=== PATIENT | male | born 1965 | race Hispanic/Latino ===

== ENCOUNTER 2016-10-13 03:45 | Emergency (ER) | payer MEDICAID, OTHER ==
[2016-10-13 04:08] VITALS: BP 137/88; PULSE 76; RESP 18; TEMP 98; O2SAT 98
--- NOTE | 2016-10-13 04:39 | ED PDOC ---
HPI: Psych/Substance Abuse Time Seen by Provider: 10/13/16 03:50 Chief Complaint (Nursing): Psychiatric Evaluation Chief Complaint (Provider): crisis eval, alcohol intoxication History Per: Patient History/Exam Limitations: no limitations Onset/Duration Of Symptoms: Hrs Current Symptoms Are (Timing): Still Present Additional Complaint(s): 51yo male with PMHx including alcoholism presents to the ED for crisis eval and alcohol intoxication. Patient admits to alcohol use today and reports feeling depressed with suicidal ideation but denies specific plan. Denies any other medical or psychiatric complaints. Past Medical History Reviewed: Historical Data, Nursing Documentation, Vital Signs Vital Signs: Last Vital Signs Temp 98 F 10/13/16 03:58 Pulse 76 10/13/16 03:58 Resp 18 10/13/16 03:58 BP 137/88 10/13/16 03:58 Pulse Ox 98 10/13/16 03:58 - Medical History PMH: HTN, Seizures (Alcohol Withdrawal) Denies: Diabetes, Hepatitis, HIV, Chronic Kidney Disease, Sexually Transmitted Disease - Surgical History Surgical History: No Surg Hx - Family History Family History: States: No Known Family Hx - Living Arrangements Living Arrangements: Other (homeless) - Social History Current smoker - smoking cessation education provided: Yes Alcohol: Other (hx of alcoholism) Drugs: Denies - Immunization History Hx Tetanus Toxoid Vaccination: Yes Hx Influenza Vaccination: Yes Hx Pneumococcal Vaccination: Yes - Home Medications Home Medications: Ambulatory Orders Medication Instructions Recorded Clotrimazole 1% Cream [Lotrimin 1%] 30 applic TOP BID #1 tube 09/21/16 Hydrocortisone 1% Cream [Cortizone 1 appl TP BID #1 tube 09/21/16 1% Cream] - Allergies Allergies/Adverse Reactions: Allergies Allergy/AdvReac Type Severity Reaction Status Date / Time mushroom AdvReac SWELLING Verified 09/21/16 12:02 Review of Systems ROS Statement: Except As Marked, All Systems Reviewed And Found Negative Psych: Positive for: Depression, Suicidal ideation Physical Exam - Reviewed Nursing Documentation Reviewed: Yes Vital Signs Reviewed: Yes - Physical Exam Appears: Positive for: Well, No Acute Distress Head Exam: Positive for: ATRAUMATIC, NORMAL INSPECTION, NORMOCEPHALIC Skin: Positive for: Normal Color, Warm, Dry Eye Exam: Positive for: Normal appearance, EOMI, PERRL ENT: Positive for: Normal ENT Inspection Neck: Positive for: Normal, Painless ROM, Supple Cardiovascular/Chest: Positive for: Regular Rate, Rhythm. Negative for: Murmur , Tachycardia Respiratory: Positive for: Normal Breath Sounds. Negative for: Wheezing, Respiratory Distress Gastrointestinal/Abdominal: Positive for: Normal Exam, Soft. Negative for: Tenderness Back: Positive for: Normal Inspection Extremity: Positive for: Normal ROM. Negative for: Deformity, Swelling Neurologic/Psych: Positive for: Alert, Oriented - Laboratory Results Result Diagrams: 10/13/16 04:30 - ECG O2 Sat by Pulse Oximetry: 98 Pulse Ox Interpretation: Normal (RA) Medical Decision Making Medical Decision Makin: Impression: 51yo male w/ depression and suicidal ideation in setting of alcohol use Plan: Labs crisis eval reassess 0540: Patient was evaluated and cleared by crisis. Patient stable for d/c. Dx: alcohol dependence stable Scribe Attestation: Documented by Levon Perez acting as a scribe for Bernardo Torres MD. Provider Scribe Attestation: All medical record entries made by the Scribe were at my direction and personally dictated by me. I have reviewed the chart and agree that the record accurately reflects my personal performance of the history, physical exam, medical decision making, and the department course for this patient. I have also personally directed, reviewed, and agree with the discharge instructions and disposition. Disposition - Clinical Impression Clinical Impression: Alcohol dependence - Patient ED Disposition Is Patient to be Admitted: No - Disposition Disposition: Routine/Home Disposition Time: 05:40 Condition: STABLE Instructions: Alcohol Dependence (ED)
[2016-10-13 04:52] LABS: BASO # 0.2 K/uL (0.0-0.2); BASO % 2.2 % (0.0-2.0); EOS # 0.6 K/uL (0.0-0.7); EOS % 6.4 % (0.0-4.0); HEMATOCRIT 38.8 % (35.0-51.0); LYMPH # 3.7 K/uL (1.0-4.3); LYMPH % 38.3 % (20.0-40.0); MEAN CELL VOLUME 98.4 fl (80.0-94.0); MEAN CORPUSCULAR HEMOGLOBIN 32.5 pg (27.0-31.0); MEAN PLATELET VOLUME 6.6 fl (7.2-11.7); MONO # 0.6 K/uL (0.0-0.8); MONO % 6.1 % (0.0-10.0); NEUT # 4.5 K/uL (1.8-7.0); NRBC % 0.1 % (0.0-0.0); RED CELL DISTRIBUTION WIDTH 14.2 % (11.5-14.5); WHITE BLOOD COUNT 9.6 K/uL (4.8-10.8)
[2016-10-13 05:10] LABS: RBC URINE 5 /hpf (0-3); URINE BILIRUBIN NEGATIVE (NEGATIVE); URINE BLOOD NEGATIVE (NEGATIVE); URINE COLOR STRAW (YELLOW); URINE GLUCOSE (UA) NEG (Normal); URINE KETONE NEGATIVE (NEGATIVE); URINE LEUKOCYTE ESTERASE NEG Leu/uL (Negative); URINE PROTEIN NEGATIVE (NEGATIVE); URINE UROBILINOGEN 0.2-1.0 mg/dL (0.2-1.0)
== END 2016-10-13 06:40 | disposition home or self-care (01) ==
LOC: H.ER 03:45
DX: F10.129 Alcohol abuse with intoxication, unspecified (principal)

== ENCOUNTER 2016-11-12 15:32 | Emergency (ER) | payer OTHER ==
--- NOTE | 2016-11-12 15:59 | ED PDOC ---
HPI: General Adult Time Seen by Provider: 11/12/16 15:40 Chief Complaint (Nursing): Medical Clearance Chief Complaint (Provider): Alcohol Withdrawal History Per: Patient History/Exam Limitations: no limitations Onset/Duration Of Symptoms: Days (1x) Current Symptoms Are (Timing): Still Present Severity: Moderate Additional Complaint(s): 51 year old male with a pertinent medical history of alcoholism, hypertension ( no medications), and seizures, currently under police custody is brought into the ED by [facility] for a medical and psychiatric evaluation. Patient reports feeling shaky and nauseous due to alcohol withdrawal. He reports that the last time he drank alcohol was last night and he has had seizures in the past from alcohol withdrawal (resolved when given Librium). He reports having associated symptoms of shortness of breath, anxiety , and depression. He denies having vomiting, chest pain, hallucinations, suicidal ideation, and homicidal ideation. PMD: Patient does not have a PMD. Past Medical History Reviewed: Historical Data, Nursing Documentation, Vital Signs Vital Signs: Last Vital Signs Temp 99.1 F 11/12/16 20:35 Pulse 91 H 11/12/16 20:35 Resp 16 11/12/16 20:35 BP 161/111 H 11/12/16 20:35 Pulse Ox 95 11/12/16 20:35 - Medical History PMH: HTN (not on medications), Seizures (Alcohol Withdrawal) Denies: Diabetes, Hepatitis, HIV, Chronic Kidney Disease, Sexually Transmitted Disease - Surgical History Surgical History: No Surg Hx - Family History Family History: States: Hypertension Other Family History: mother and father had cancer - Living Arrangements Living Arrangements: Other (currently in [place] [employer] custody) - Social History Current smoker - smoking cessation education provided: No Alcohol: > 2 Drinks/Day Drugs: Denies - Immunization History Hx Tetanus Toxoid Vaccination: Yes Hx Influenza Vaccination: Yes Hx Pneumococcal Vaccination: Yes - Home Medications Home Medications: Ambulatory Orders Medication Instructions Recorded Clotrimazole 1% Cream [Lotrimin 1%] 30 applic TOP BID #1 tube 09/21/16 Hydrocortisone 1% Cream [Cortizone 1 appl TP BID #1 tube 09/21/16 1% Cream] - Allergies Allergies/Adverse Reactions: Allergies Allergy/AdvReac Type Severity Reaction Status Date / Time mushroom AdvReac SWELLING Verified 09/21/16 12:02 Review of Systems ROS Statement: Except As Marked, All Systems Reviewed And Found Negative Cardiovascular: Negative for: Chest Pain Respiratory: Positive for: Shortness of Breath Gastrointestinal: Positive for: Nausea. Negative for: Vomiting Psych: Positive for: Anxiety, Depression, Withdrawal (alcohol withdrawal). Negative for: Suicidal ideation (denies homicidal ideations), Other ( hallucinations) Physical Exam - Reviewed Nursing Documentation Reviewed: Yes Vital Signs Reviewed: Yes - Physical Exam Appears: Positive for: Well, Non-toxic (malodorous), No Acute Distress Skin: Positive for: Normal Color, Warm, Dry (diffusely scaly especially on bilateral lower extremities) Eye Exam: Positive for: Conjunctival injection ENT: Positive for: Other (tacky mucous membranes) Cardiovascular/Chest: Positive for: Tachycardia (regular rhythm) Respiratory: Positive for: Normal Breath Sounds. Negative for: Respiratory Distress Neurologic/Psych: Positive for: Alert, Oriented (3x) - Laboratory Results Result Diagrams: 11/12/16 16:16 11/12/16 16:16 - ECG ECG: Positive for: Interpreted By Me, Viewed By Me ECG Rhythm: Positive for: Normal QRS, Normal ST Segment, Sinus Rhythm (normal sinus rhythm at 77 beats per minute) O2 Sat by Pulse Oximetry: 96 (RA) Pulse Ox Interpretation: Normal Medical Decision Making Medical Decision Makin:40 Initial impression: 51 year old male with alcohol withdrawal and mild depression. Initial plan: * EKG * bloodwork * labs * librium 100mg PO * vitamin B1 tab 100mg PO * zofran 8mg IV 1900 Labs demosntrate elevated BAL, otherwise no emergently significant abnormalities. Cleared by for dc Scribe Attestation: Documented by Lelia Alvarez, acting as a scribe for Marianne Morgan MD. Provider Scribe Attestation: All medical record entries made by the Scribe were at my direction and personally dictated by me. I have reviewed the chart and agree that the record accurately reflects my personal performance of the history, physical exam, medical decision making, and the department course for this patient. I have also personally directed, reviewed, and agree with the discharge instructions and disposition. Disposition - Clinical Impression Clinical Impression: Alcohol dependence Counseled Patient/Family Regarding: Studies Performed - Disposition Referrals: Alcoholics Anonymous [Outside] [facility] [Outside] Disposition: Discharged/Transfer to Law Enforcement Disposition Time: 19:00 Condition: GOOD Additional Instructions: PATIENT IS MEDICALLY AND PSYCHIATRICALLY STABLE FOR INCARCERATION Instructions: Abuse of Alcohol (ED)
[2016-11-12] MEDS ORDERED: Thiamine 100 mg/ml Inj IM STA (16:31)
[2016-11-12 16:38] LABS: ALB/GLOB RATIO 1.1 (1.0-2.1); ALBUMIN 4.4 g/dL (3.5-5.0); ALT/SGPT 85 U/L (21-72); AST/SGOT 169 U/L (17-59); BLOOD UREA NITROGEN 4 mg/dl (9-20); CALCIUM 9.1 mg/dL (8.4-10.2); GFR AFRICAN-AMERICAN > 60; GFR NON-AFRICAN AMERICAN > 60; MAGNESIUM 1.1 MG/DL (1.6-2.3)
[2016-11-12 16:42] LABS: BASO % 0.9 % (0.0-2.0); EOS % 0.7 % (0.0-4.0); HEMOGLOBIN 12.8 g/dL (12.0-18.0); LYMPH # 1.1 K/uL (1.0-4.3); LYMPH % 31.7 % (20.0-40.0); MEAN CELL VOLUME 95.6 fl (80.0-94.0); MEAN CORPUSCULAR HEMOGLOBIN 32.6 pg (27.0-31.0); MEAN CORPUSCULAR HGB CONC 34.1 g/dL (33.0-37.0); MEAN PLATELET VOLUME 7.7 fl (7.2-11.7); MONO # 0.5 K/uL (0.0-0.8); MONO % 13.2 % (0.0-10.0); NEUT # 1.8 K/uL (1.8-7.0); NEUT % 53.5 % (50.0-75.0); NRBC % 0.3 % (0.0-0.0); RBC 3.92 Mil/uL (4.40-5.90); RED CELL DISTRIBUTION WIDTH 14.4 % (11.5-14.5); WHITE BLOOD COUNT 3.4 K/uL (4.8-10.8)
[2016-11-12 20:35] VITALS: BP 161/111; PULSE 91; RESP 16; TEMP 99.1
--- NOTE | 2016-11-13 08:22 | CARD ---
APPROVED REPORT EKG Measurement Heart [id number] <Conclusion> Normal sinus rhythm Normal ECG
[2016-11-14 18:11] VITALS: O2SAT 96
== END 2016-11-12 21:47 ==
LOC: H.ER 15:32
DX: F10.239 Alcohol dependence with withdrawal, unspecified (principal); F32.9 Major depressive disorder, single episode, unspecified; I10 Essential (primary) hypertension; R56.9 Unspecified convulsions; R00.0 Tachycardia, unspecified

== ENCOUNTER 2017-05-31 06:30 | Emergency (ER) | payer MEDICAID, OTHER ==
[2017-05-31 06:55] VITALS: BP 166/71; PULSE 100; RESP 17; TEMP 98; O2SAT 97
[2017-05-31] MEDS ORDERED: Permethrin 5% CREAM TOP ONE (07:05)
[2017-05-31] MEDS ORDERED: Sodium Chloride 0.9% 1,000 ML IV STA (07:33)
[2017-05-31 08:01] LABS: BASO # 0.1 K/uL (0.0-0.2); HEMOGLOBIN 9.6 g/dL (12.0-18.0); LYMPH # 1.2 K/uL (1.0-4.3); LYMPH % 14.7 % (20.0-40.0); MEAN CELL VOLUME 90.2 fl (80.0-94.0); MEAN CORPUSCULAR HEMOGLOBIN 30.2 pg (27.0-31.0); MEAN CORPUSCULAR HGB CONC 33.5 g/dL (33.0-37.0); MEAN PLATELET VOLUME 7.1 fl (7.2-11.7); MONO # 1.1 K/uL (0.0-0.8); MONO % 13.9 % (0.0-10.0); NEUT # 4.6 K/uL (1.8-7.0); NEUT % 58.4 % (50.0-75.0); RBC 3.18 Mil/uL (4.40-5.90); RED CELL DISTRIBUTION WIDTH 15.9 % (11.5-14.5); WHITE BLOOD COUNT 7.9 K/uL (4.8-10.8)
--- NOTE | 2017-05-31 08:04 | ED PDOC ---
Syncope/Near Syncope/Dizziness Time Seen by Provider: 05/31/17 06:59 Chief Complaint (Nursing): Dizziness/Lightheaded Chief Complaint (Provider): Dizziness/Lightheaded History Per: Patient History/Exam Limitations: no limitations Onset/Duration Of Symptoms: Mins (prior to arrival) Current Symptoms Are (Timing): Still Present Additional Complaint(s): 52 year old male with medical history of hypertension, who presents to the emergency department with a complaint of dizziness associated with nausea while walking prior to arrival. Patient also reported having tick bites all over body from "bugs at the alf". Denied any chest pain, shortness of breath, vomiting or diarrhea. PMD: none provided Past Medical History Reviewed: Historical Data, Nursing Documentation, Vital Signs Vital Signs: Last Vital Signs Temp 98.0 F 05/31/17 06:41 Pulse 100 H 05/31/17 06:41 Resp 17 05/31/17 06:41 BP 166/71 H 05/31/17 06:41 Pulse Ox 97 05/31/17 06:41 - Medical History PMH: HTN (not on medications), Seizures (Alcohol Withdrawal) Denies: HIV, Chronic Kidney Disease, Sexually Transmitted Disease - Surgical History Surgical History: No Surg Hx - Family History Family History: States: Hypertension - Social History Current smoker - smoking cessation education provided: No Alcohol: Occasional Drugs: Denies - Immunization History Hx Tetanus Toxoid Vaccination: Yes Hx Influenza Vaccination: Yes Hx Pneumococcal Vaccination: Yes - Home Medications Home Medications: Ambulatory Orders Medication Instructions Recorded Permethrin [Elimite] 60 gm TP ONCE #1 cream..g. 05/22/17 predniSONE [Prednisone] 40 mg PO DAILY #4 tab 05/22/17 - Allergies Allergies/Adverse Reactions: Allergies Allergy/AdvReac Type Severity Reaction Status Date / Time mushroom AdvReac SWELLING Verified 12/15/16 23:38 Review of Systems ROS Statement: Except As Marked, All Systems Reviewed And Found Negative Cardiovascular: Negative for: Chest Pain Respiratory: Negative for: Shortness of Breath Gastrointestinal: Positive for: Nausea. Negative for: Vomiting, Diarrhea Skin: Positive for: Other (diffuse bug bites) Neurological: Positive for: Dizziness Physical Exam - Reviewed Nursing Documentation Reviewed: Yes Vital Signs Reviewed: Yes - Physical Exam Appears: Positive for: No Acute Distress Head Exam: Positive for: ATRAUMATIC, NORMAL INSPECTION, NORMOCEPHALIC Skin: Positive for: Dry (with diffuse excoriation). Negative for: Normal Color , Rash (or local redness/induration) Cardiovascular/Chest: Positive for: Regular Rate, Rhythm, Chest Non Tender Respiratory: Positive for: Normal Breath Sounds. Negative for: Decreased Breath Sounds, Wheezing, Respiratory Distress Gastrointestinal/Abdominal: Positive for: Normal Exam, Soft. Negative for: Tenderness Extremity: Positive for: Normal ROM (upper/lower) Neurologic/Psych: Positive for: Alert (x2), Other - Laboratory Results Result Diagrams: 05/31/17 07:57 05/31/17 07:57 - ECG O2 Sat by Pulse Oximetry: 97 (RA) Pulse Ox Interpretation: Normal Medical Decision Making Medical Decision Making: Initial Impression: Near syncope Initial Plan: * Alcohol serum * CMP * CBC * NS 1,000ml IV per 1,000mls/hr * Pepcid 20mg IVP * Tylenol 650mg PO * Zofran 4mg IVP * Permethrin 5% cream Scribe Attestation: Documented by Rachna Ramirez, acting as a scribe for Sherie Keller MD. Provider Scribe Attestation: All medical record entries made by the Scribe were at my direction and personally dictated by me. I have reviewed the chart and agree that the record accurately reflects my personal performance of the history, physical exam, medical decision making, and the department course for this patient. I have also personally directed, reviewed, and agree with the discharge instructions and disposition. patient made aware of anemia - advised possibly due to GI tract blood loss. Rectal exam needed for stool specimen. Patient refused. Disposition - Clinical Impression Clinical Impression: Anemia, Alcohol abuse, Pruritic dermatitis - Patient ED Disposition Is Patient to be Admitted: No Doctor Will See Patient In The: Office - Disposition [facility]errals[facility] [[facility]] [facility] [Outside] Disposition: Routine/Home Disposition Time: 10:20 Condition: STABLE Forms: [employer] [facility] (Mexican) - POA Present On Arrival: None
[2017-05-31 08:34] LABS: CALCIUM 8.4 mg/dL (8.4-10.2); GFR AFRICAN-AMERICAN > 60; GFR NON-AFRICAN AMERICAN > 60
[2017-05-31 08:43] LABS: ALB/GLOB RATIO 0.9 (1.0-2.1); ALBUMIN 3.9 g/dL (3.5-5.0); ALT/SGPT 39 U/L (21-72); AST/SGOT 95 U/L (17-59); BLOOD UREA NITROGEN 8 mg/dl (9-20)
[2017-05-31] MEDS ORDERED: Naproxen 500 MG TAB PO ONE ×2 (08:43→08:44)
== END 2017-05-31 12:20 | disposition home or self-care (01) ==
LOC: H.ER 06:30
DX: F10.10 Alcohol abuse, uncomplicated (principal); D64.9 Anemia, unspecified; L30.8 Other specified dermatitis; I10 Essential (primary) hypertension
CPT/HCPCS: 80053; 80320; 85025; 96374; 96375; 99285; J2405; J7040

== ENCOUNTER 2017-06-02 05:28 | Emergency (ER) | payer OTHER ==
[2017-06-02 05:39] VITALS: BMI 27.3
[2017-06-02] MEDS ORDERED: Permethrin 5% CREAM TOP ONE (05:40)
[2017-06-02 05:42] VITALS: BP 145/75; PULSE 91; RESP 18; TEMP 98.7; O2SAT 100
--- NOTE | 2017-06-02 07:15 | ED PDOC ---
HPI: Skin/Bite Injury Time Seen by Provider: 06/02/17 05:38 Chief Complaint (Nursing): Abnormal Skin Integrity Chief Complaint (Provider): Skin History Per: Other (Police) Current Symptoms Are (Timing): Still Present Additional Complaint(s): Surjit Park is a 52 year old white male with a history of alcoholism and hypertension that was brought to the ED by [employer] and presents to the ED with a chief complaint of itchiness to multiple extremities. He denies any fever, nausea, vomiting, or abdominal pain. Past Medical History Reviewed: Historical Data, Nursing Documentation, Vital Signs Vital Signs: Last Vital Signs Temp 98.7 F 06/02/17 05:32 Pulse 91 H 06/02/17 05:32 Resp 18 06/02/17 05:32 BP 145/75 06/02/17 05:32 Pulse Ox 100 06/02/17 05:32 - Medical History PMH: HTN (not on medications), Seizures (Alcohol Withdrawal) Denies: HIV, Chronic Kidney Disease, Sexually Transmitted Disease - Family History Family History: States: Unknown Family Hx, Hypertension - Social History Current smoker - smoking cessation education provided: Yes Alcohol: > 2 Drinks/Day (hx of alcoholism) - Immunization History Hx Tetanus Toxoid Vaccination: Yes Hx Influenza Vaccination: Yes Hx Pneumococcal Vaccination: Yes - Home Medications Home Medications: Ambulatory Orders Medication Instructions Recorded Permethrin [Elimite] 60 gm TP ONCE #1 cream..g. 05/22/17 predniSONE [Prednisone] 40 mg PO DAILY #4 tab 05/22/17 - Allergies Allergies/Adverse Reactions: Allergies Allergy/AdvReac Type Severity Reaction Status Date / Time mushroom AdvReac SWELLING Verified 12/15/16 23:38 Review of Systems Constitutional: Negative for: Fever Gastrointestinal: Negative for: Nausea, Vomiting, Abdominal Pain Physical Exam - Physical Exam Appears: Positive for: Non-toxic, No Acute Distress Head Exam: Positive for: ATRAUMATIC, NORMOCEPHALIC Skin: Positive for: Rash (pruritis to extremities). Negative for: Normal Color Eye Exam: Positive for: Normal appearance, EOMI, PERRL Cardiovascular/Chest: Positive for: Regular Rate, Rhythm. Negative for: Murmur Respiratory: Positive for: Normal Breath Sounds. Negative for: Wheezing Gastrointestinal/Abdominal: Positive for: Normal Exam, Soft. Negative for: Tenderness Back: Positive for: Normal Inspection. Negative for: L CVA Tenderness, R CVA Tenderness Extremity: Positive for: Normal ROM, Other (Diffuse scabies to the extremities) Neurologic/Psych: Positive for: Alert, Oriented. Negative for: Motor/Sensory Deficits - ECG O2 Sat by Pulse Oximetry: 100 (RA) Pulse Ox Interpretation: Normal Medical Decision Making Medical Decision Making: Impression: Scabies Plan: * Patient escorted to decon room and showered. Given clean clothes afterwards. Permethrin 5% applied to affected areas. Patient is medically stable for incarceration. Scribe Attestation: Documented by Manda Drake, acting as a scribe for Bernardo Torres MD. Provider Scribe Attestation: All medical record entries made by the Scribe were at my direction and personally dictated by me. I have reviewed the chart and agree that the record accurately reflects my personal performance of the history, physical exam, medical decision making, and the department course for this patient. I have also personally directed, reviewed, and agree with the discharge instructions and disposition. Disposition - Clinical Impression Clinical Impression: Scabies - Patient ED Disposition Is Patient to be Admitted: No - Disposition Disposition: Discharged/Transfer to Law Enforcement Disposition Time: 06:20 Condition: STABLE Additional Instructions: Patient is medically stable for incarceration Instructions: Scabies (ED) Forms: [employer] (Surinamese)
== END 2017-06-02 06:21 | disposition home or self-care (01) ==
LOC: H.ER 05:28
DX: B86 Scabies (principal); I10 Essential (primary) hypertension; F17.200 Nicotine dependence, unspecified, uncomplicated; Z02.89 Encounter for other administrative examinations

== ENCOUNTER 2017-06-30 23:34 | Emergency (ER) | payer MEDICAID, OTHER ==
[2017-06-30 23:34] VITALS: BMI 27.3
[2017-06-30 23:40] VITALS: BP 121/76; PULSE 70; RESP 18; TEMP 98.1; O2SAT 98
--- NOTE | 2017-07-01 00:31 | ED PDOC ---
HPI: General Adult Time Seen by Provider: 06/30/17 23:52 Chief Complaint (Nursing): Medical Clearance History Per: Patient Additional Complaint(s): Pt. brought in by police for medical and psychiatric clearance for incarceration. Pt. informed police that he was recent treated for bed bugs. Offers no complaints at this time. Denies rash, pruritus, fever, pain, SI/HI, hallucinations. Past Medical History Reviewed: Historical Data, Nursing Documentation, Vital Signs Vital Signs: Last Vital Signs Temp 98.1 F 06/30/17 23:36 Pulse 70 06/30/17 23:36 Resp 18 06/30/17 23:36 BP 121/76 06/30/17 23:36 Pulse Ox 98 07/01/17 00:31 - Medical History PMH: HTN (not on medications), Seizures (Alcohol Withdrawal) Denies: HIV, Chronic Kidney Disease, Sexually Transmitted Disease - Family History Family History: States: Hypertension - Immunization History Hx Tetanus Toxoid Vaccination: Yes Hx Influenza Vaccination: Yes Hx Pneumococcal Vaccination: Yes - Home Medications Home Medications: Ambulatory Orders Medication Instructions Recorded Permethrin [Elimite] 60 gm TP ONCE #1 cream..g. 05/22/17 chlordiazePOXIDE [Chlordiazepoxide 25 mg PO PRN 06/11/17 HCl] - Allergies Allergies/Adverse Reactions: Allergies Allergy/AdvReac Type Severity Reaction Status Date / Time mushroom AdvReac SWELLING Verified 06/30/17 23:36 Review of Systems ROS Statement: Except As Marked, All Systems Reviewed And Found Negative Physical Exam - Physical Exam Appears: Positive for: Well, Non-toxic, No Acute Distress Skin: Positive for: Normal Color, Warm. Negative for: Rash Neurologic/Psych: Positive for: Alert, Oriented. Negative for: Aphasia, Facial Droop - ECG O2 Sat by Pulse Oximetry: 98 Disposition - Clinical Impression Clinical Impression: Medical clearance for incarceration - Patient ED Disposition Is Patient to be Admitted: No - Disposition Referrals: Grupo Puckett MD [Primary Care Provider] - Disposition: Discharged/Transfer to Law Enforcement Disposition Time: 00:31 Condition: STABLE Additional Instructions: Patient is medically and psychiatrically cleared for incarceration. Forms: [employer] (Cameroonian) Print Language: UZBEK
== END 2017-07-01 01:15 ==
LOC: H.ER 23:34
DX: I10 Essential (primary) hypertension

== ENCOUNTER 2017-07-09 03:16 | Emergency (ER) | payer SELFPAY ==
[2017-07-09 03:16] VITALS: BMI 27.3
[2017-07-09 03:44] VITALS: RESP 18
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
[2017-07-09 06:18] VITALS: BP 157/91; PULSE 88; TEMP 98.3; O2SAT 98
--- NOTE | 2017-07-09 10:10 | RAD ---
HISTORY: cough, congestion COMPARISON: No prior. TECHNIQUE: Chest PA and lateral FINDINGS: LUNGS: Diminished inspiratory volume crowns of bilateral bronchovascular markings. No definite alveolitis appreciable bilaterally nevertheless. PLEURA: No significant pleural effusion identified. No pneumothorax apparent. CARDIOVASCULAR: Normal. OSSEOUS STRUCTURES: No significant abnormalities. VISUALIZED UPPER ABDOMEN: Normal. OTHER FINDINGS: None. IMPRESSION: Diminished inspiratory volume crowds the bronchovascular markings at the bases bilaterally. No definite acute infiltrate, pleural effusion or pneumothorax identified.
== END 2017-07-09 07:02 | disposition home or self-care (01) ==
LOC: H.ER 03:16
DX: J06.9 Acute upper respiratory infection, unspecified (principal); I10 Essential (primary) hypertension; Z59.0 Homelessness

== ENCOUNTER 2017-11-16 03:59 | Emergency (ER) | payer MEDICAID, OTHER ==
[2017-11-16 04:00] VITALS: BMI 27.3
[2017-11-16 04:16] VITALS: RESP 18
--- NOTE | 2017-11-16 05:32 | ED PDOC ---
HPI: Back Time Seen by Provider: 11/16/17 04:12 Chief Complaint (Nursing): Lower Extremity Problem/Injury History Per: Patient Additional Complaint(s): Pt. states approximately 5 hours he's had atraumatic L buttock pain upon awakening. Pt. states he did sleep on that side. Denies blunt trauma, numbness, tingling, radiation of pain, incontinence, abdominal pain, dysuria, hematuria. Past Medical History Reviewed: Historical Data, Nursing Documentation, Vital Signs Vital Signs: Last Vital Signs Temp 97.6 F 11/16/17 04:13 Pulse 102 H 11/16/17 04:13 Resp 18 11/16/17 04:13 BP 132/96 H 11/16/17 04:13 Pulse Ox 97 11/16/17 04:13 - Medical History PMH: HTN (not on medications), Seizures (Alcohol Withdrawal) Denies: HIV, Chronic Kidney Disease, Sexually Transmitted Disease - Family History Family History: States: Hypertension - Immunization History Hx Tetanus Toxoid Vaccination: Yes Hx Influenza Vaccination: Yes Hx Pneumococcal Vaccination: Yes - Home Medications Home Medications: Ambulatory Orders Medication Instructions Recorded Permethrin [Elimite] 60 gm TP ONCE #1 cream..g. 05/22/17 chlordiazePOXIDE [Chlordiazepoxide 25 mg PO PRN 06/11/17 HCl] Albuterol HFA [Ventolin HFA 90 1 puff IH Q4 PRN #1 inh 07/09/17 mcg/actuation (8 g)] Benzonatate [Tessalon Perle] 100 mg PO TID PRN #15 capsule 07/09/17 Fluticasone Nasal [Flonase] 1 actuation NS BID #1 bottle 07/09/17 Cyclobenzaprine [Cyclobenzaprine 10 mg PO Q8 PRN #10 tab 11/16/17 HCl] Naproxen [Naprosyn] 500 mg PO BID PRN #10 tab 11/16/17 - Allergies Allergies/Adverse Reactions: Allergies Allergy/AdvReac Type Severity Reaction Status Date / Time mushroom AdvReac SWELLING Verified 06/30/17 23:36 Review of Systems ROS Statement: Except As Marked, All Systems Reviewed And Found Negative Musculoskeletal: Positive for: Back Pain Physical Exam - Physical Exam Appears: Positive for: Well, Non-toxic, No Acute Distress (sleeping comfortably ; easily arousable to verbal stimuli) Head Exam: Positive for: ATRAUMATIC, NORMAL INSPECTION, NORMOCEPHALIC Skin: Positive for: Normal Color, Warm. Negative for: Rash Eye Exam: Positive for: Normal appearance Cardiovascular/Chest: Positive for: Regular Rate, Rhythm, Chest Non Tender Respiratory: Positive for: Normal Breath Sounds. Negative for: Respiratory Distress Pulses-Dorsalis Pedis (L): 2+ Pulses-Dorsalis Pedis (R): 2+ Gastrointestinal/Abdominal: Positive for: Normal Exam, Soft. Negative for: Tenderness Back: Positive for: Normal Inspection, Muscle Spasm (large muscle spasm in L buttock area without any skin changes, warmth, erythema, ecchymosis or break in skin integrity). Negative for: L CVA Tenderness, R CVA Tenderness, Vertebral Tenderness Extremity: Positive for: Normal ROM, Other (no pelvic/hip tenderness or deformity) Neurologic/Psych: Positive for: Alert, Oriented, Gait (steady, unassisted), Other (no slurred speech). Negative for: Aphasia, Facial Droop - ECG O2 Sat by Pulse Oximetry: 97 - Progress ED Course And Treament: L hip/pelvic x-rays, toradol 30mg IM, flexeril 10mg PO ordered. On re-evaluation, pt. reports pain relief. Gait is steady unassisted. Disposition - Clinical Impression Clinical Impression: Muscle spasm - Patient ED Disposition Is Patient to be Admitted: No - Disposition Referrals: [facility] [Outside] Disposition: Routine/Home Disposition Time: 06:36 Condition: IMPROVED Additional Instructions: CATHI PARSON, thank you for letting us take care of you today. Your provider was Bernardo Torres MD and you were treated for LT LEG PAIN. The emergency medical care you received today was directed at your acute symptoms. If you were prescribed any medication, please fill it and take as directed. It may take several days for your symptoms to resolve. Return to the Emergency Department if your symptoms worsen, do not improve, or if you have any other problems. Please contact your doctor or call one of the physicians/clinics you have been referred to that are listed on the Patient Visit Information form that is included in your discharge packet. Bring any paperwork you were given at discharge with you along with any medications you are taking to your follow up visit. Our treatment cannot replace ongoing medical care by a primary care provider outside of the emergency department. Thank you for allowing the [facility] team to be part of your care today. If you had an X-Ray or CT scan: A Radiologist will review the ED reading if any change in treatment is needed we will contact you. If you had a blood, urine, or wound culture: It will take several days for the results, if any change in treatment is needed we will contact you. If you had an STI test: It will take 48 hours for the results. Please call after 1 week if you have not heard back. Prescriptions: Cyclobenzaprine [Cyclobenzaprine HCl] 10 mg PO Q8 PRN #10 tab PRN Reason: Muscle Spasm Naproxen [Naprosyn] 500 mg PO BID PRN #10 tab PRN Reason: Pain Instructions: Muscle Spasms (DC) Forms: [employer] ([place])
[2017-11-16] MEDS ORDERED: Albuterol 0.083% Inhal Sol (2.5 mg/3 mL) UD ONE (08:12)
[2017-11-16 08:38] VITALS: BP 120/80; PULSE 88; TEMP 97.1; O2SAT 99
--- NOTE | 2017-11-16 10:09 | RAD ---
PROCEDURE: Left Hip X-ray Radiographs. HISTORY: trauma COMPARISON: None. FINDINGS: BONES: Normal. No fracture. JOINTS: Degenerative osteoarthritis both hip joints left greater than right. SOFT TISSUES: Normal. OTHER FINDINGS: None. IMPRESSION: No evidence of acute displaced fracture nor dislocation. Degenerative osteoarthritis both hip joints left greater than right If symptoms persist or occult fracture suspected clinically recommend follow-up PET-CT scan of the pelvis/hips.
== END 2017-11-16 08:00 | disposition home or self-care (01) ==
LOC: H.ER 03:59
DX: M62.838 Other muscle spasm (principal); I10 Essential (primary) hypertension
CPT/HCPCS: 73501; 96372; 99283; J1885

== ENCOUNTER 2018-02-09 09:54 | Observation (INO) | payer MEDICAID, OTHER ==
[2018-02-09] MEDS ORDERED: Thiamine 100 mg/ml Inj IM ONE (10:00)
[2018-02-09] MEDS ORDERED: Multivitamin (MVI) 10 ML, Thiamine 100 MG, Folic Acid 1 MG in Dextrose 5%/0.45% NS 1,00... IV ONE (10:01)
--- NOTE | 2018-02-09 10:04 | ED PDOC ---
HPI: Seizure Time Seen by Provider: 02/09/18 09:58 Chief Complaint (Provider): Seizure History Per: EMS History/Exam Limitations: clinical condition Associated Symptoms: Injury As A Result Of Seizure Activity (of head) Additional Complaint(s): 52 years old male with history of hypertension and seizure brought by EMS after patient noted to have seizure with no witness available. EMS described shaking up extremities with patient falling and sustain head injury. Patient has no collection of event. PMD: non provided Past Medical History Reviewed: Historical Data, Nursing Documentation, Vital Signs - Medical History PMH: HTN (not on medications), Seizures (Alcohol Withdrawal) Denies: HIV, Chronic Kidney Disease, Sexually Transmitted Disease - Family History Family History: States: Unknown Family Hx, Hypertension - Immunization History Hx Tetanus Toxoid Vaccination: Yes Hx Influenza Vaccination: Yes Hx Pneumococcal Vaccination: Yes - Home Medications Home Medications: Ambulatory Orders Medication Instructions Recorded No Known Home Med 02/09/18 - Allergies Allergies/Adverse Reactions: Allergies Allergy/AdvReac Type Severity Reaction Status Date / Time mushroom AdvReac SWELLING Verified 02/09/18 10:04 Review of Systems ROS Statement: Except As Marked, All Systems Reviewed And Found Negative Neurological: Positive for: Seizures Physical Exam - Reviewed Nursing Documentation Reviewed: Yes Vital Signs Reviewed: Yes - Physical Exam Appears: Positive for: No Acute Distress Head Exam: Negative for: ATRAUMATIC ((+) Abrasion, soft tissue swelling. No palpable fracture.) Eye Exam: Positive for: Normal appearance, EOMI, PERRL Neck: Positive for: Normal, Painless ROM, Supple Cardiovascular/Chest: Positive for: Regular Rate, Rhythm. Negative for: Murmur Respiratory: Positive for: Normal Breath Sounds (bilaterally). Negative for: Wheezing (bilaterally) Gastrointestinal/Abdominal: Positive for: Normal Exam, Soft. Negative for: Tenderness Back: Positive for: Normal Inspection. Negative for: L CVA Tenderness, R CVA Tenderness, Other (Bruising) Extremity: Positive for: Normal ROM, Other (Tremor upper extremity bilaterally.). Negative for: Deformity, Swelling Neurologic/Psych: Positive for: Alert (Confused), Oriented (x0) - Laboratory Results Result Diagrams: 02/09/18 10:10 02/09/18 10:10 Medical Decision Making Medical Decision Making: Time: 958 Initial Plan: --CT head without contrast --EKG --Alcohol serum --Drug screen --CBC --Urine dipstick --Chest x-ray --Ativan 1 mg IVP --Dextrose 5% 1,000 ml IV 100 mls/hr --Vitamin B1 100 mg IM Scribe Attestation: Documented by Beulah Burton, acting as a scribe for Linwood Ramirez MD. Provider Scribe Attestation: All medical record entries made by the Scribe were at my direction and personally dictated by me. I have reviewed the chart and agree that the record accurately reflects my personal performance of the history, physical exam, medical decision making, and the department course for this patient. I have also personally directed, reviewed, and agree with the discharge instructions and disposition. Disposition - Clinical Impression Clinical Impression: Alcohol related seizure - Patient ED Disposition Is Patient to be Admitted: Yes - Disposition Disposition Time: 11:29 Condition: FAIR - Pt Status Changed To: Hospital Disposition Of: Observation - POA Present On Arrival: None
--- NOTE | 2018-02-09 10:34 | RAD ---
Date of service: 02/09/2018 HISTORY: cough COMPARISON: 07/09/2017 FINDINGS: LUNGS: Minimal patchy interstitial changes, unchanged from prior study. No new focal alveolar infiltrate seen. PLEURA: No significant pleural effusion identified, no pneumothorax apparent. CARDIOVASCULAR: Normal. OSSEOUS STRUCTURES: No significant abnormalities. VISUALIZED UPPER ABDOMEN: Normal. OTHER FINDINGS: None. IMPRESSION: No new focal infiltrate. Stable appearance of the lungs.
[2018-02-09] MEDS ORDERED: Thiamine 100 mg/ml Inj ONE (10:38)
[2018-02-09 10:40] LABS: BASO % 0.6 % (0.0-2.0); EOS % 0.3 % (0.0-4.0); HEMOGLOBIN 10.8 g/dL (12.0-18.0); LYMPH # 1.1 K/uL (1.0-4.3); LYMPH % 16.5 % (20.0-40.0); MEAN CELL VOLUME 90.2 fl (80.0-94.0); MEAN CORPUSCULAR HEMOGLOBIN 28.8 pg (27.0-31.0); MEAN CORPUSCULAR HGB CONC 31.9 g/dL (33.0-37.0); MEAN PLATELET VOLUME 6.9 fl (7.2-11.7); MONO # 0.9 K/uL (0.0-0.8); MONO % 13.2 % (0.0-10.0); NEUT # 4.6 K/uL (1.8-7.0); NEUT % 69.4 % (50.0-75.0); RBC 3.74 Mil/uL (4.40-5.90); RED CELL DISTRIBUTION WIDTH 17.3 % (11.5-14.5); WHITE BLOOD COUNT 6.7 K/uL (4.8-10.8)
[2018-02-09 10:56] LABS: BLOOD UREA NITROGEN 5 mg/dl (9-20); CALCIUM 9.4 mg/dL (8.4-10.2); GFR NON-AFRICAN AMERICAN > 60
[2018-02-09 10:57] LABS: ALBUMIN 4.4 g/dL (3.5-5.0)
[2018-02-09 11:00] LABS: ALT/SGPT 20 U/L (21-72); AST/SGOT 77 U/L (17-59)
--- NOTE | 2018-02-09 11:09 | CT ---
Date of service: 02/09/2018 PROCEDURE: CT HEAD WITHOUT CONTRAST. HISTORY: r/o bleed COMPARISON: 10/17/2015 TECHNIQUE: Axial computed tomography images were obtained through the head/brain without intravenous contrast. Radiation dose: Total exam DLP = 1229 mGy-cm. This CT exam was performed using one or more of the following dose reduction techniques: Automated exposure control, adjustment of the mA and/or kV according to patient size, and/or use of iterative reconstruction technique. FINDINGS: HEMORRHAGE: No intracranial hemorrhage is noted. Subdural windows fail to reveal evidence of high density extra-axial acute subdural hematoma. No subarachnoid blood is identified. BRAIN: No mass effect or edema. Mild diffuse cerebral cortical atrophy is noted. Stable frontal falx calcification is noted. Minor amount of small vessel changes in the white matter tracts are not excluded. There is mild calcific atherosclerotic change of the distal intracranial internal carotid arteries. VENTRICLES: Unremarkable. No hydrocephalus. CALVARIUM: No fracture seen. Overlying right posterior parietal soft tissue swelling and scalp hematoma are noted. There may also be some mild soft tissue swelling overlying the right frontal bone region. PARANASAL SINUSES: New moderate right frontal sinus opacification is identified with almost complete opacification of the right frontal sinus and probably a portion of the right frontal ethmoid recess. Left frontal sinus is well aerated. Minor amount of mucoperiosteal thickening in the right frontal sinus is not excluded. There additionally mild mucosal changes seen in the ethmoid air cells and maxillary sinuses, mildly increased. MASTOID AIR CELLS: Unremarkable as visualized. No inflammatory changes. OTHER FINDINGS: Retro-orbital regions are unremarkable. Posterior nasopharynx is within normal limits. IMPRESSION: No evidence of intracranial hemorrhage or extra-axial fluid collection. Right posterior parietal scalp hematoma. No fracture. Increased sinusitis including almost complete opacification of the right frontal sinus. Mild age related changes without cortical effacement. If patient is on blood thinners, close clinical surveillance would be suggested as there is increased risk for delayed bleeding.
[2018-02-09] MEDS: Sodium Chloride 0.9% 1,000 ML IV SCH (13:34)
--- NOTE | 2018-02-09 13:55 | CP.PCM.HP ---
Addendum entered and electronically signed by Lynn Arredondo MD 02/09/18 16:45: Phys: Neuro: Motor and sensory grossly intact, resting tremor noted on outstretched hands. Not oriented to place and time Original Note: <Lynn Arredondo - Last Filed: 02/09/18 16:40> History of Present Illness - History of Present Illness History of Present Illness: 52 YO M w/ PMHx of alcohol abuse is brought into the ER after having an unwitnessed seizure by EMS. Patient is a poor historian. States he doesnt remember anything of how he ended up in the ER. He only remember having seizures yesterday, when he hit the back of his head, but denies any loss of consciousne ss. Denies any bowl or bladder incontinence. He admits to seizures in the past but is not on any medications. Patient has been brought in for similar visits in the past. Patient denies of any alcohol usage today. He states his last drink was yesterday when he had 3 beers. - When patient was asked his name he states [place]. He was not able to recall his age. As per patient he is 36. When asked what year it was? He states [place]. Which month is it? [place]. - Denies any chest pain, SOB. CIWA Score: 19 PMH:Seizures (non medicated) PSH: None Allergy: Mushroom FH: None SH: 2-3 beers a day, denies any other illicit substance usage Present on Admission - Present on Admission Any Indicators Present on Admission: No Review of Systems - Constitutional Additional comments: Tremor upper extremity B/L - EENT Eyes: As Per HPI Ears: As Per HPI Nose/Mouth/Throat: As Per HPI - Respiratory Respiratory: As Per HPI - Gastrointestinal Gastrointestinal: As Per HPI - Genitourinary Genitourinary: As Per HPI - Neurological Neurological: Tremor - Psychiatric Psychiatric: Anxiety, Difficulty Concentrating. absent: Auditory Hallucinations, Hallucinations, Suicidal Ideation, Tactile Hallucinations Past Patient History - Infectious Disease Hx of Infectious Diseases: None - Tetanus Immunizations Tetanus Immunization: Unknown - Past Medical History & Family History Past Medical History?: Yes - Past Social History Smoking Status: Never Smoked - CARDIAC Hx Hypertension: Yes (not on medications) - PULMONARY Hx Tuberculosis: No - NEUROLOGICAL Hx Seizures: Yes (Alcohol Withdrawal) - HEENT Hx HEENT Problems: No - RENAL Hx Chronic Kidney Disease: No - ENDOCRINE/METABOLIC Hx Endocrine Disorders: No - HEMATOLOGICAL/ONCOLOGICAL Hx Human Immunodeficiency Virus (HIV): No - INTEGUMENTARY Hx Dermatological Problems: No - MUSCULOSKELETAL/RHEUMATOLOGICAL Hx Musculoskeletal Disorders: No Hx Falls: No - GASTROINTESTINAL Hx Gastrointestinal Disorders: No - GENITOURINARY/GYNECOLOGICAL Hx Sexually Transmitted Disorders: No - PSYCHIATRIC Hx Psychophysiologic Disorder: No Hx Substance Use: No - SURGICAL HISTORY Hx Surgeries: No - ANESTHESIA Hx Anesthesia: No Hx Anesthesia Reactions: No Hx Malignant Hyperthermia: No Meds Allergies/Adverse Reactions: Allergies Allergy/AdvReac Type Severity Reaction Status Date / Time mushroom AdvReac SWELLING Verified 02/09/18 10:04 Physical Exam - Constitutional Appears: Unkempt - Head Exam Additional comments: 2 cm linear laceration on right side of occipital region - Eye Exam Eye Exam: Normal appearance Pupil Exam: NORMAL ACCOMODATION - Respiratory Exam Respiratory Exam: Clear to Auscultation Bilateral, NORMAL BREATHING PATTERN. absent: Rhonchi, Wheezes - Cardiovascular Exam Cardiovascular Exam: REGULAR RHYTHM, +S1, +S2 - GI/Abdominal Exam GI & Abdominal Exam: Normal Bowel Sounds, Soft. absent: Tenderness - Extremities Exam Extremities exam: Positive for: normal inspection. Negative for: calf tenderness - Psychiatric Exam Psychiatric exam: Agitated, Anxious Additional comments: actively withdrawl - Skin Additional comments: warm, moist goose bumps Results - Vital Signs Recent Vital Signs: Last Vital Signs Temp 99.6 F 02/09/18 13:38 Pulse 102 H 02/09/18 13:37 Resp 19 02/09/18 13:37 BP 152/92 H 02/09/18 13:37 Pulse Ox 96 02/09/18 13:37 - Labs Result Diagrams: 02/09/18 10:10 02/09/18 10:10 Labs: Laboratory Results - last 24 hr 02/09/18 02/09/18 02/09/18 10:04 10:10 10:10 WBC 6.7 RBC 3.74 L Hgb 10.8 L Hct 33.7 L MCV 90.2 MCH 28.8 MCHC 31.9 L RDW 17.3 H Plt Count 104 L D MPV 6.9 L Neut % (Auto) 69.4 Lymph % (Auto) 16.5 L [place] % (Auto) 13.2 H Eos % (Auto) 0.3 Baso % (Auto) 0.6 Neut # (Auto) 4.6 Lymph # (Auto) 1.1 [place] # (Auto) 0.9 H Eos # (Auto) 0.0 Baso # (Auto) 0.0 Sodium 140 Potassium 4.2 Chloride 107 Carbon Dioxide 13 L Anion Gap 24 H BUN 5 L Creatinine 0.6 L Est GFR ( Amer) > 60 Est GFR (Non-Af Amer) > 60 POC Glucose (mg/dL) 138 H Random Glucose 130 H Calcium 9.4 Total Bilirubin 0.8 AST 77 H ALT 20 L D Alkaline Phosphatase 95 Total Protein 8.9 H Albumin 4.4 Globulin 4.5 H Albumin/Globulin Ratio 1.0 Alcohol, Quantitative < 10 Assessment & Plan - Assessment and Plan (Free Text) Assessment: 52 YO M who was admitted for alcohol withdrawal with possible unwitnessed seizure. 1) Alcohol Withdrawal: - CIWA : 19 - Librium 25mg Q6 - Ativan 1mg IVP PRN - Folic acid - Thiamine - UTOX - Aspiration precautions - Seizure precautions 2) Possible Seizure - Unwitnessed - Most likely secondary to alcohol withdrawl. - CT head: neg - Laceration reparied with 4 kyle 3) DVT prophylaxis - SCD <Washington Mcgovern D - Last Filed: 02/09/18 18:40> Results - Vital Signs Recent Vital Signs: Last Vital Signs Temp 99.9 F H 02/09/18 16:27 Pulse 113 H 02/09/18 16:27 Resp 16 02/09/18 16:27 BP 186/98 H 02/09/18 16:27 Pulse Ox 95 02/09/18 16:27 - Labs Result Diagrams: 02/09/18 10:10 02/09/18 10:10 Labs: Laboratory Results - last 24 hr 02/09/18 02/09/18 02/09/18 10:04 10:10 10:10 WBC 6.7 RBC 3.74 L Hgb 10.8 L Hct 33.7 L MCV 90.2 MCH 28.8 MCHC 31.9 L RDW 17.3 H Plt Count 104 L D MPV 6.9 L Neut % (Auto) 69.4 Lymph % (Auto) 16.5 L [place] % (Auto) 13.2 H Eos % (Auto) 0.3 Baso % (Auto) 0.6 Neut # (Auto) 4.6 Lymph # (Auto) 1.1 [place] # (Auto) 0.9 H Eos # (Auto) 0.0 Baso # (Auto) 0.0 Sodium 140 Potassium 4.2 Chloride 107 Carbon Dioxide 13 L Anion Gap 24 H BUN 5 L Creatinine 0.6 L Est GFR ( Amer) > 60 Est GFR (Non-Af Amer) > 60 POC Glucose (mg/dL) 138 H Random Glucose 130 H Calcium 9.4 Total Bilirubin 0.8 AST 77 H ALT 20 L D Alkaline Phosphatase 95 Total Protein 8.9 H Albumin 4.4 Globulin 4.5 H Albumin/Globulin Ratio 1.0 Urine Opiates Screen Urine Methadone Screen Ur Barbiturates Screen Ur Phencyclidine Scrn Ur Amphetamines Screen U Benzodiazepines Scrn U Oth Cocaine Metabols U Cannabinoids Screen Alcohol, Quantitative < 10 02/09/18 12:50 WBC RBC Hgb Hct MCV MCH MCHC RDW Plt Count MPV Neut % (Auto) Lymph % (Auto) [place] % (Auto) Eos % (Auto) Baso % (Auto) Neut # (Auto) Lymph # (Auto) [place] # (Auto) Eos # (Auto) Baso # (Auto) Sodium Potassium Chloride Carbon Dioxide Anion Gap BUN Creatinine Est GFR ( Amer) Est GFR (Non-Af Amer) POC Glucose (mg/dL) Random Glucose Calcium Total Bilirubin AST ALT Alkaline Phosphatase Total Protein Albumin Globulin Albumin/Globulin Ratio Urine Opiates Screen Negative Urine Methadone Screen Negative Ur Barbiturates Screen Negative Ur Phencyclidine Scrn Negative Ur Amphetamines Screen Negative U Benzodiazepines Scrn Positive U Oth Cocaine Metabols Negative U Cannabinoids Screen Negative Alcohol, Quantitative Attending/Attestation - Attestation I have personally seen and examined this patient.: Yes I have fully participated in the care of the patient.: Yes I have reviewed all pertinent clinical information: Yes
[2018-02-09 14:04] LABS: BARBITURATES, UR NEGATIVE (NEGATIVE); BENZODIAZEPINES, UR POSITIVE (NEGATIVE); OPIATES, UR NEGATIVE (NEGATIVE); PHENCYCLIDINE, UR NEGATIVE (NEGATIVE)
[2018-02-09] MEDS ORDERED: Pneumococcal 23-Valent Vaccine IM ONE (16:47)
[2018-02-09] MEDS ORDERED: Influenza Vaccine (5 YR UP)/PF 60 MCG/0.5 ML SYR IM ONE (16:50)
--- NOTE | 2018-02-09 22:00 | CARD ---
APPROVED REPORT Date of service: 02/09/2018 EKG Measurement Heart [id number] <Conclusion> Sinus tachycardia Otherwise normal ECG
[2018-02-10 05:59] LABS: BASO % 0.9 % (0.0-2.0); EOS # 0.1 K/uL (0.0-0.7); EOS % 2.6 % (0.0-4.0); HEMOGLOBIN 9.7 g/dL (12.0-18.0); LYMPH # 0.9 K/uL (1.0-4.3); LYMPH % 16.6 % (20.0-40.0); MEAN CELL VOLUME 88.1 fl (80.0-94.0); MEAN CORPUSCULAR HEMOGLOBIN 28.9 pg (27.0-31.0); MEAN CORPUSCULAR HGB CONC 32.8 g/dL (33.0-37.0); MEAN PLATELET VOLUME 7.3 fl (7.2-11.7); MONO # 0.8 K/uL (0.0-0.8); MONO % 13.6 % (0.0-10.0); NEUT # 3.7 K/uL (1.8-7.0); NEUT % 66.3 % (50.0-75.0); RBC 3.36 Mil/uL (4.40-5.90); RED CELL DISTRIBUTION WIDTH 17.2 % (11.5-14.5); WHITE BLOOD COUNT 5.6 K/uL (4.8-10.8)
[2018-02-10 06:15] LABS: ALB/GLOB RATIO 0.9 (1.0-2.1); ALBUMIN 3.4 g/dL (3.5-5.0); ALT/SGPT 24 U/L (21-72); AST/SGOT 55 U/L (17-59); BLOOD UREA NITROGEN 5 mg/dl (9-20); CALCIUM 8.2 mg/dL (8.4-10.2); GFR NON-AFRICAN AMERICAN > 60; LIPASE 79 U/L (23-300)
--- NOTE | 2018-02-10 07:10 | CP.PCM.PN ---
Objective - Vital Signs/Intake and Output Vital Signs (last 24 hours): Temp Pulse Resp BP Pulse Ox 99.3 F 93 H 18 143/70 99 02/10/18 04:39 02/10/18 04:39 02/10/18 04:39 02/10/18 04:39 02/10/18 04:39 - Medications Medications: Current Medications Chlordiazepoxide (Librium) 25 mg PO Q6 [facility] Last Admin: 02/09/18 21:12 Dose: 25 mg Folic Acid (Folic Acid) 1 mg PO DAILY [facility] Sodium Chloride (Sodium Chloride 0.9%) 1,000 mls @ 100 mls/hr IV .Q10H [facility] Last Admin: 02/09/18 13:34 Dose: 100 mls/hr Potassium Chloride (Potassium Chloride 20 Meq/100 Ml) 100 mls @ 50 mls/hr IVPB Q2 [facility] Stop: 02/10/18 11:59 Lorazepam (Ativan) 1 mg IVP ONCE PRN PRN Reason: Symptoms of alcohol withdrawl Thiamine HCl (Vitamin B1 Tab) 100 mg PO DAILY [facility] - Labs Labs: 02/10/18 04:20 02/10/18 04:20
[2018-02-10] MEDS ORDERED: Magnesium Sulfate 2 gm/50 ml 2 GM/50 ML BAG IVPB ONE (08:04)
[2018-02-10] MEDS: Sodium Chloride 0.9% 1,000 ML IV SCH (09:04)
[2018-02-10] MEDS: Potassium Chloride 20 mEq 100 ML IVPB SCH ×2 (09:10→12:48)
[2018-02-10 09:23] VITALS: BP 148/76; PULSE 80; RESP 20; TEMP 98.6; O2SAT 96
[2018-02-10 12:58] LABS: BLOOD UREA NITROGEN 5 mg/dl (9-20); CALCIUM 8.2 mg/dL (8.4-10.2); GFR NON-AFRICAN AMERICAN > 60
--- NOTE | 2018-02-10 13:24 | CP.PCM.DIS ---
<Fannie Puckett - Last Filed: 02/10/18 13:33> Provider - Provider Date of Admission: 02/09/18 11:27 Attending physician: Washington Mcgovern MD Primary care physician: None Consults: None Time Spent in preparation of Discharge (in minutes): 40 Diagnosis - Discharge Diagnosis (1) Alcohol withdrawal Status: Acute Comment: - C/w Librium for next 3 days as advised. - Educated on quiting alcohol (2) Occipital scalp laceration Status: Acute Comment: - 4 kyle were placed in the ER. - Come back to ER or follow up with PMD for staple removal (3) Alcohol related seizure Status: Acute Comment: - Unwitnessed. - Not on any medications Hospital Course - Lab Results Lab Results: Most Recent Lab Values WBC 5.6 K/uL (4.8-10.8) 02/10/18 04:20 RBC 3.36 Mil/uL (4.40-5.90) L 02/10/18 04:20 Hgb 9.7 g/dL (12.0-18.0) L 02/10/18 04:20 Hct 29.6 % (35.0-51.0) L 02/10/18 04:20 MCV 88.1 fl (80.0-94.0) D 02/10/18 04:20 MCH 28.9 pg (27.0-31.0) 02/10/18 04:20 MCHC 32.8 g/dL (33.0-37.0) L 02/10/18 04:20 RDW 17.2 % (11.5-14.5) H 02/10/18 04:20 Plt Count 85 K/uL (130-400) L 02/10/18 04:20 MPV 7.3 fl (7.2-11.7) 02/10/18 04:20 Neut % (Auto) 66.3 % (50.0-75.0) 02/10/18 04:20 Lymph % (Auto) 16.6 % (20.0-40.0) L 02/10/18 04:20 [place] % (Auto) 13.6 % (0.0-10.0) H 02/10/18 04:20 Eos % (Auto) 2.6 % (0.0-4.0) 02/10/18 04:20 Baso % (Auto) 0.9 % (0.0-2.0) 02/10/18 04:20 Neut # (Auto) 3.7 K/uL (1.8-7.0) 02/10/18 04:20 Lymph # (Auto) 0.9 K/uL (1.0-4.3) L 02/10/18 04:20 [place] # (Auto) 0.8 K/uL (0.0-0.8) 02/10/18 04:20 Eos # (Auto) 0.1 K/uL (0.0-0.7) 02/10/18 04:20 Baso # (Auto) 0.0 K/uL (0.0-0.2) 02/10/18 04:20 Sodium 136 mmol/l (132-148) 02/10/18 12:13 Potassium 3.9 MMOL/L (3.6-5.0) 02/10/18 12:13 Chloride 101 mmol/L (98-107) 02/10/18 12:13 Carbon Dioxide 25 mmol/L (22-30) 02/10/18 12:13 Anion Gap 14 (10-20) 02/10/18 12:13 BUN 5 mg/dl (9-20) L 02/10/18 12:13 Creatinine 0.5 mg/dl (0.8-1.5) L 02/10/18 12:13 Est GFR ( Amer) > 60 02/10/18 12:13 Est GFR (Non-Af Amer) > 60 02/10/18 12:13 POC Glucose (mg/dL) 138 mg/dL (65-110) H 02/09/18 10:04 Random Glucose 88 mg/dL (75-110) 02/10/18 12:13 Calcium 8.2 mg/dL (8.4-10.2) L 02/10/18 12:13 Phosphorus 3.2 mg/dl (2.5-4.5) 02/10/18 04:20 Magnesium 1.4 MG/DL (1.6-2.3) L 02/10/18 04:20 Total Bilirubin 0.8 mg/dl (0.2-1.3) 02/10/18 04:20 AST 55 U/L (17-59) 02/10/18 04:20 ALT 24 U/L (21-72) 02/10/18 04:20 Alkaline Phosphatase 76 U/L (38-126) 02/10/18 04:20 Ammonia 29 umo/L (16-60) 02/10/18 04:20 Total Protein 7.1 G/DL (6.3-8.2) 02/10/18 04:20 Albumin 3.4 g/dL (3.5-5.0) L D 02/10/18 04:20 Globulin 3.7 gm/dL (2.2-3.9) 02/10/18 04:20 Albumin/Globulin Ratio 0.9 (1.0-2.1) L 02/10/18 04:20 Lipase 79 U/L (23-300) 02/10/18 04:20 Prolactin 81.3 ng/mL (3.7-17.9) H 02/09/18 17:48 Urine Opiates Screen Negative (NEGATIVE) 02/09/18 12:50 Urine Methadone Screen Negative (NEGATIVE) 02/09/18 12:50 Ur Barbiturates Screen Negative (NEGATIVE) 02/09/18 12:50 Ur Phencyclidine Scrn Negative (NEGATIVE) 02/09/18 12:50 Ur Amphetamines Screen Negative (NEGATIVE) 02/09/18 12:50 U Benzodiazepines Scrn Positive (NEGATIVE) 02/09/18 12:50 U Oth Cocaine Metabols Negative (NEGATIVE) 02/09/18 12:50 U Cannabinoids Screen Negative (NEGATIVE) 02/09/18 12:50 Alcohol, Quantitative < 10 mg/dl (0-10) 02/09/18 10:10 - Hospital Course Hospital Course: This is 52 y/o male with PMH of alcohol abuse and seizures admitted to the [facility] for evaluation and treatment of s/p fall, and alcohol withdrawal. Patient was treated for 2 cm linear laceration on right occipital region with 4 kyle. Patient was treated for alcohol withdrawal CIWA score dropped to 6 from 19. VS reviewed with CBC and CMP. Patient agrees with discharge plan and discharged with Librium for 3 days. Patient was instructed to come back to ER or follow up with PMD for Staple removal in 7 to 10 days. New medication: Librium for 3 days Discharge Exam - Head Exam Additional comments: 2 cm linear laceration on right side of occipital region - Eye Exam Eye Exam: EOMI, Normal appearance Pupil Exam: NORMAL ACCOMODATION - ENT Exam ENT Exam: Mucous Membranes Moist - Neck Exam Neck exam: Normal Inspection - Respiratory Exam Respiratory Exam: Clear to PA & Lateral, NORMAL BREATHING PATTERN - Cardiovascular Exam Cardiovascular Exam: REGULAR RHYTHM, +S1, +S2 - GI/Abdominal Exam GI & Abdominal Exam: Normal Bowel Sounds, Soft. absent: Diminished Bowel Sounds, Tenderness - Extremities Exam Extremities exam: normal capillary refill Additional comments: mild UEs Tremors - Back Exam Back exam: absent: CVA tenderness (L), CVA tenderness (R) - Neurological Exam Neurological exam: Alert, CN II-XII Intact, Normal Gait, Oriented x3 - Psychiatric Exam Psychiatric exam: Normal Affect - Skin Skin Exam: Normal Color Discharge Plan - Discharge Medications Prescriptions: RX: chlordiazePOXIDE [Librium] 25 mg PO ASDIR #8 cap - Follow Up Plan Condition: FAIR Disposition: HOME/ ROUTINE Instructions: Laceration Repair, Seizures, Adult (DC), Alcohol Withdrawal, Alcohol Abuse and Alcoholism (DC) Additional Instructions: C/w Librium Q6H today, 3 times next day, 2 times day 2 Follow up with PMD or ER in 7 to 10 days for staple removal ER precautions discussed with the patient <Washington Mcgovern - Last Filed: 02/10/18 13:53> Provider - Provider Date of Admission: 02/09/18 11:27 Attending physician: Washington Mcgovern MD Hospital Course - Lab Results Lab Results: Most Recent Lab Values WBC 5.6 K/uL (4.8-10.8) 02/10/18 04:20 RBC 3.36 Mil/uL (4.40-5.90) L 02/10/18 04:20 Hgb 9.7 g/dL (12.0-18.0) L 02/10/18 04:20 Hct 29.6 % (35.0-51.0) L 02/10/18 04:20 MCV 88.1 fl (80.0-94.0) D 02/10/18 04:20 MCH 28.9 pg (27.0-31.0) 02/10/18 04:20 MCHC 32.8 g/dL (33.0-37.0) L 02/10/18 04:20 RDW 17.2 % (11.5-14.5) H 02/10/18 04:20 Plt Count 85 K/uL (130-400) L 02/10/18 04:20 MPV 7.3 fl (7.2-11.7) 02/10/18 04:20 Neut % (Auto) 66.3 % (50.0-75.0) 02/10/18 04:20 Lymph % (Auto) 16.6 % (20.0-40.0) L 02/10/18 04:20 [place] % (Auto) 13.6 % (0.0-10.0) H 02/10/18 04:20 Eos % (Auto) 2.6 % (0.0-4.0) 02/10/18 04:20 Baso % (Auto) 0.9 % (0.0-2.0) 02/10/18 04:20 Neut # (Auto) 3.7 K/uL (1.8-7.0) 02/10/18 04:20 Lymph # (Auto) 0.9 K/uL (1.0-4.3) L 02/10/18 04:20 [place] # (Auto) 0.8 K/uL (0.0-0.8) 02/10/18 04:20 Eos # (Auto) 0.1 K/uL (0.0-0.7) 02/10/18 04:20 Baso # (Auto) 0.0 K/uL (0.0-0.2) 02/10/18 04:20 Sodium 136 mmol/l (132-148) 02/10/18 12:13 Potassium 3.9 MMOL/L (3.6-5.0) 02/10/18 12:13 Chloride 101 mmol/L (98-107) 02/10/18 12:13 Carbon Dioxide 25 mmol/L (22-30) 02/10/18 12:13 Anion Gap 14 (10-20) 02/10/18 12:13 BUN 5 mg/dl (9-20) L 02/10/18 12:13 Creatinine 0.5 mg/dl (0.8-1.5) L 02/10/18 12:13 Est GFR ( Amer) > 60 02/10/18 12:13 Est GFR (Non-Af Amer) > 60 02/10/18 12:13 POC Glucose (mg/dL) 138 mg/dL (65-110) H 02/09/18 10:04 Random Glucose 88 mg/dL (75-110) 02/10/18 12:13 Calcium 8.2 mg/dL (8.4-10.2) L 02/10/18 12:13 Phosphorus 3.2 mg/dl (2.5-4.5) 02/10/18 04:20 Magnesium 1.4 MG/DL (1.6-2.3) L 02/10/18 04:20 Total Bilirubin 0.8 mg/dl (0.2-1.3) 02/10/18 04:20 AST 55 U/L (17-59) 02/10/18 04:20 ALT 24 U/L (21-72) 02/10/18 04:20 Alkaline Phosphatase 76 U/L (38-126) 02/10/18 04:20 Ammonia 29 umo/L (16-60) 02/10/18 04:20 Total Protein 7.1 G/DL (6.3-8.2) 02/10/18 04:20 Albumin 3.4 g/dL (3.5-5.0) L D 02/10/18 04:20 Globulin 3.7 gm/dL (2.2-3.9) 02/10/18 04:20 Albumin/Globulin Ratio 0.9 (1.0-2.1) L 02/10/18 04:20 Lipase 79 U/L (23-300) 02/10/18 04:20 Prolactin 81.3 ng/mL (3.7-17.9) H 02/09/18 17:48 Urine Opiates Screen Negative (NEGATIVE) 02/09/18 12:50 Urine Methadone Screen Negative (NEGATIVE) 02/09/18 12:50 Ur Barbiturates Screen Negative (NEGATIVE) 02/09/18 12:50 Ur Phencyclidine Scrn Negative (NEGATIVE) 02/09/18 12:50 Ur Amphetamines Screen Negative (NEGATIVE) 02/09/18 12:50 U Benzodiazepines Scrn Positive (NEGATIVE) 02/09/18 12:50 U Oth Cocaine Metabols Negative (NEGATIVE) 02/09/18 12:50 U Cannabinoids Screen Negative (NEGATIVE) 02/09/18 12:50 Alcohol, Quantitative < 10 mg/dl (0-10) 02/09/18 10:10 Attending/Attestation - Attestation I have personally seen and examined this patient.: Yes I have fully participated in the care of the patient.: Yes I have reviewed all pertinent clinical information, including history, physical exam and plan: Yes
== END 2018-02-10 15:30 | disposition home or self-care (01) ==
LOC: H.ER 09:54 → H.ERHOLD 11:27 → H.TEL 16:15
DX: F10.239 Alcohol dependence with withdrawal, unspecified (principal); S01.01XA Laceration without foreign body of scalp, initial encounter; R56.9 Unspecified convulsions; Z23 Encounter for immunization; Z91.018 Allergy to other foods
CPT/HCPCS: 12001; 36415; 70450; 71045; 80053; 80320; 80324; 80345; 80346; 80349; 80353; 80358; 80361; 82140; 82948; 83690; 83735; 83992; 84100; 84146; 85025; 90471; 93005; 96361; 96372; 96374; 96375; 97161; 99285; G0378; G8978; G8979; J2060; J2405; J3411; J3480; J7030; J7042; Q2035

== ENCOUNTER 2018-04-25 19:46 | Emergency (ER) | payer OTHER ==
--- NOTE | 2018-04-25 20:51 | ED PDOC ---
Lower Extremity Pain/Injury Time Seen by Provider: 04/25/18 20:40 Chief Complaint (Nursing): Lower Extremity Problem/Injury Chief Complaint (Provider): Bilateral Foot Pain History Per: Patient History/Exam Limitations: no limitations Current Symptoms Are (Timing): Still Present Additional Complaint(s): 53 year old male presents to the ED via EMS for evaluation of bilateral foot pain since his feet have been very wet. Denies injury. Of note, he says he hasn't taken off his socks or shoes "in a while." PMD: none provided Past Medical History Reviewed: Historical Data, Nursing Documentation, Vital Signs Vital Signs: Last Vital Signs Temp 98.0 F 04/25/18 20:33 Pulse 92 H 04/25/18 20:33 Resp 18 04/25/18 20:33 BP 152/90 H 04/25/18 20:33 Pulse Ox 100 04/25/18 20:33 - Medical History PMH: HTN (not on medications), Seizures (Alcohol Withdrawal) Denies: HIV, Chronic Kidney Disease, Sexually Transmitted Disease - Surgical History Surgical History: No Surg Hx - Family History Family History: States: Unknown Family Hx, Hypertension - Immunization History Hx Tetanus Toxoid Vaccination: Yes Hx Influenza Vaccination: Yes Hx Pneumococcal Vaccination: Yes - Home Medications Home Medications: Ambulatory Orders Medication Instructions Recorded Folic Acid 1 mg PO DAILY tab 02/10/18 Thiamine [Vitamin B1 Tab] 100 mg PO DAILY tab 02/10/18 chlordiazePOXIDE [Librium] 25 mg PO ASDIR #8 cap 02/10/18 Butenafine HCl [Lotrimin Ultra] 30 gm TP BID #30 cream..g. 04/25/18 - Allergies Allergies/Adverse Reactions: Allergies Allergy/AdvReac Type Severity Reaction Status Date / Time mushroom AdvReac SWELLING Verified 04/25/18 20:33 Review of Systems ROS Statement: Except As Marked, All Systems Reviewed And Found Negative Musculoskeletal: Positive for: Foot Pain (bilateral) Physical Exam - Reviewed Nursing Documentation Reviewed: Yes Vital Signs Reviewed: Yes - Physical Exam Appears: Positive for: No Acute Distress Extremity: Positive for: Normal ROM (of bilateral LE), Other (foul smelling feet; moist, moderately soiled plantar surfaces bilaterally of feet with mild erythema but no open wounds) - ECG O2 Sat by Pulse Oximetry: 100 (RA) Pulse Ox Interpretation: Normal Medical Decision Making Medical Decision Making: Time: 2048 Initial Impression: bilateral foot pain Initial Plan: --Feet were washed in ED and patient given clean socks. Lotrimin applied. Scribe Attestation: Documented by Linette Dempsey, acting as a scribe for Chas Puckett PA-C. Provider Scribe Attestation: All medical record entries made by the Scribe were at my direction and personally dictated by me. I have reviewed the chart and agree that the record accurately reflects my personal performance of the history, physical exam, medical decision making, and the department course for this patient. I have also personally directed, reviewed, and agree with the discharge instructions and disposition. Disposition - Clinical Impression Clinical Impression: Foot pain, bilateral - Patient ED Disposition Is Patient to be Admitted: No - Disposition Referrals: Podiatry Clinic [Outside] Disposition: Routine/Home Disposition Time: 21:04 Condition: FAIR Prescriptions: Butenafine HCl [Lotrimin Ultra] 30 gm TP BID #30 cream..g. Instructions: Athlete's Foot (DC)
[2018-04-25 22:22] VITALS: BP 146/86; PULSE 81; RESP 16; TEMP 98.3; O2SAT 97
== END 2018-04-25 22:22 | disposition home or self-care (01) ==
LOC: H.ER 19:46
DX: M79.672 Pain in left foot (principal); M79.671 Pain in right foot; I10 Essential (primary) hypertension